=== PATIENT | male | born 1995 | race Caucasian/White ===

== ENCOUNTER → 2018-05-09 | Outpatient (CLI) | payer OTHER ==
--- NOTE | 2018-05-09 15:56 | Diagnostic Imaging Report ---
EXAM: Scrotal Ultrasound with Duplex INDICATION: \S\RIGHT TESTICULAR PAIN / SWELLING COMPARISON: None TECHNIQUE: Transverse and longitudinal images were obtained of the scrotum with grayscale imaging, color Doppler and spectral waveform analysis. FINDINGS: Right testis: Size: 4.9 x 2.6 x 3.6 cm, normal in size. Echogenicity: Normal Mass/Cysts: None Left testis: Size: 5.2 x 2.6 x 3.5 cm, normal in size. Echogenicity: Normal Mass/Cysts: None Epididymis: Appearance: Normal in size without increased vascularity. Mass/Cysts: None Extratesticular: Masses: None Hydrocele: None Varicocele: None Doppler: Normal arterial flow to both testes and symmetrical flow on color Doppler evaluation is seen. No evidence of testicular torsion. IMPRESSION: 1. No evidence of testicular torsion. 2. Unremarkable scrotal ultrasound exam. Signed by: Dr. Alton Lane MD on 05/09/2018 1:50 PM
== END ==
LOC: US 12:44
PROVIDERS: ATTEND Family Medicine
DX: N50.811 Right testicular pain (principal); N50.89 Other specified disorders of the male genital organs
CPT/HCPCS: 76870; 93976